=== PATIENT | male | born 1985 | race Caucasian/White ===

== ENCOUNTER 2018-08-18 05:19 | Emergency (ER) | payer OTHER ==
[~2018-08-18] VITALS: Ht 170.2 cm; Wt 84.1 kg
[2018-08-18] MEDS ORDERED: IBUP-1022 PO (06:50)
[2018-08-18] MEDS ORDERED: ROBA500T PO (06:50)
[2018-08-18] MEDS ORDERED: METHOCARBAMOL 500 MG TAB PO ONE (07:00)
[2018-08-18] MEDS ORDERED: IBUPROFEN 600 MG TAB PO ONE (07:00)
[2018-08-18 07:11] VITALS: BP 149/89
== END 2018-08-18 07:13 | disposition home or self-care (01) ==
LOC: M ED 05:19
DX: S39.012A Strain of muscle, fascia and tendon of lower back, initial encounter (principal); X58.XXXA Exposure to other specified factors, initial encounter; Y92.89 Other specified places as the place of occurrence of the external cause